=== PATIENT | female | born 1975 ===

== ENCOUNTER 2017-05-26 12:33 | Emergency (ER) | payer OTHER ==
[2017-05-26 12:42] VITALS: BP 131/74; PULSE 91; RESP 18; TEMP 98; O2SAT 98
--- NOTE | 2017-05-26 13:25 | ED PDOC ---
HPI: Female Pain Time Seen by Provider: 05/26/17 12:52 Chief Complaint (Nursing): Female Genitourinary History Per: Patient Onset/Duration Of Symptoms: Days (2) Current Symptoms Are (Timing): Still Present Severity: Mild Pain Scale Rating Of: 2 Quality Of Discomfort: Cramping Additional Complaint(s): Vaginal spotting assoc with lower abd cramping x 2 days. Home preg positive. Abnormal Vaginal Bleeding: Yes Past Medical History Vital Signs: Last Vital Signs Temp 98 F 05/26/17 12:37 Pulse 91 H 05/26/17 12:37 Resp 18 05/26/17 12:37 BP 131/74 05/26/17 12:37 Pulse Ox 98 05/26/17 12:37 - Medical History PMH: No Chronic Diseases - Family History Family History: States: Unknown Family Hx - Home Medications Home Medications: Ambulatory Orders Medication Instructions Recorded traMADol [Ultram] 50 mg PO Q8 #1 tab 08/12/14 Dicyclomine [Dicyclomine HCl] 10 mg PO BID PRN #6 cap 08/12/15 Ondansetron [Zofran] 4 mg PO Q8H PRN #6 tab 08/12/15 - Allergies Allergies/Adverse Reactions: Allergies Allergy/AdvReac Type Severity Reaction Status Date / Time No Known Allergies Allergy Verified 05/26/17 12:35 Review of Systems Gastrointestinal: Positive for: Abdominal Pain Genitourinary Female: Positive for: Vaginal Bleeding Musculoskeletal: Negative for: Back Pain Physical Exam - Physical Exam Appears: Positive for: Non-toxic, No Acute Distress Skin: Positive for: Normal Color, Warm, DRY Gastrointestinal/Abdominal: Positive for: Bowel Sounds, Soft. Negative for: Tenderness Pelvic Exam: Positive for: External Exam Normal, No Masses. Negative for: Blood , Discharge, Tender Adnexa, Tender Uterus Extremity: Positive for: Normal ROM Neurologic/Psych: Positive for: Alert, Oriented - Laboratory Results Result Diagrams: 05/26/17 13:53 05/26/17 13:53 - ECG O2 Sat by Pulse Oximetry: 98 Disposition - Clinical Impression Clinical Impression: Threatened miscarriage - Patient ED Disposition Is Patient to be Admitted: No Counseled Patient/Family Regarding: Studies Performed, Diagnosis, Need For Followup, Rx Given - Disposition [facility]errals: [facility] [Outside] Disposition: Routine/Home Disposition Time: 16:58 Condition: FAIR Instructions: Threatened Miscarriage (ED) Forms: [facility] (Romanian) Print Language: BERMUDIAN
[2017-05-26 14:01] LABS: BASO # 0.1 K/uL (0.0-0.2); BASO % 0.5 % (0.0-2.0); EOS # 0.2 K/uL (0.0-0.7); EOS % 2.4 % (0.0-4.0); HEMATOCRIT 38.6 % (34.0-47.0); LYMPH # 2.7 K/uL (1.0-4.3); LYMPH % 26.1 % (20.0-40.0); MEAN CELL VOLUME 85.5 fl (81.0-99.0); MEAN CORPUSCULAR HGB CONC 33.9 g/dL (33.0-37.0); MEAN PLATELET VOLUME 9.6 fl (7.2-11.7); MONO # 0.8 K/uL (0.0-0.8); MONO % 7.3 % (0.0-10.0); NEUT # 6.6 K/uL (1.8-7.0); NEUT % 63.7 % (50.0-75.0); RED CELL DISTRIBUTION WIDTH 14.3 % (11.5-14.5); WHITE BLOOD COUNT 10.4 K/uL (4.8-10.8)
[2017-05-26 14:53] LABS: ALB/GLOB RATIO 1.1 (1.0-2.1); ALKALINE PHOSPHATASE 80 U/L (38-126); ALT/SGPT 30 U/L (9-52); AST/SGOT 43 U/L (14-36); BILIRUBIN,TOTAL 0.4 mg/dl (0.2-1.3); BLOOD UREA NITROGEN 9 mg/dl (7-17); CALCIUM 9.1 mg/dL (8.4-10.2); CARBON DIOXIDE 23 mmol/L (22-30); CHLORIDE 104 mmol/L (98-107); GFR AFRICAN-AMERICAN > 60; GLUCOSE,RANDOM 88 mg/dL (65-105); POTASSIUM 4.6 MMOL/L (3.6-5.0); SODIUM 137 mmol/l (132-148); TOTAL PROTEIN 7.7 G/DL (6.3-8.2)
--- NOTE | 2017-05-27 11:12 | US ---
PROCEDURE: OB Pelvic Ultrasound HISTORY: r/o ectopic COMPARISON: None available. FINDINGS: UTERUS: Single Live intrauterine gestation. CRL measures 2.62 cm equivalent to 9 weeks and 3 days gestatioin Gestational sac diameter measures 4.44 cm equivalent to 10 weeks and 0 day gestation Heart rate: 173 bpm. age (Ultrasound estimated): Nine weeks and 5 days. Heather-gestational hemorrhage: None. Date of delivery (Ultrasound estimated) : 12/24/2017. Uterus measures 12.4 x 9.8 x 7.4 cm. Normal in size and appearance. CERVIX: Long and closed. No cervical abnormality seen. RIGHT OVARY: Measures 2.9 x 2.0 x 1.8 cm. No mass lesion. Normal flow. LEFT OVARY: Measures 2.9 x 3.6 x 1.7 cm. No solid mass. Normal flow. There is a 2.2 x 1.7 x 1.6 cm parametrial cyst FREE FLUID: None. OTHER FINDINGS: None. IMPRESSION: Single live intrauterine gestation with mean gestational age of 9 weeks and 5 days. The estimated date of delivery by ultrasound is 12/24/2017. The ultrasound dates lag B joint the clinical dates by approximately 4 weeks. Clinical correlation and follow-up is advised.
== END 2017-05-26 17:14 | disposition home or self-care (01) ==
LOC: H.ER 12:33
DX: O20.0 Threatened abortion (principal); Z3A.09 9 weeks gestation of pregnancy

== ENCOUNTER 2017-06-10 07:20 | Emergency (ER) | payer MEDICAID, OTHER ==
[2017-06-10 07:27] VITALS: BP 115/69; PULSE 87; RESP 18; TEMP 98.4; O2SAT 97
--- NOTE | 2017-06-10 07:51 | ED PDOC ---
HPI: Female Pain Time Seen by Provider: 06/10/17 07:23 Chief Complaint (Nursing): Abdominal Pain History Per: Patient Onset/Duration Of Symptoms: Days (4) Current Symptoms Are (Timing): Still Present Severity: Mild Pain Scale Rating Of: 2 Quality Of Discomfort: Cramping Additional Complaint(s): LLQ abd pain crampy x 4 days assoc with vaginal bleeding. Bleeding stopped but abd pain persists. seen here 05/26. Abnormal Vaginal Bleeding: Yes Past Medical History Vital Signs: Last Vital Signs Temp 98.4 F 06/10/17 07:26 Pulse 87 06/10/17 07:26 Resp 18 06/10/17 07:26 BP 115/69 06/10/17 07:26 Pulse Ox 97 06/10/17 07:26 - Medical History PMH: No Chronic Diseases - Family History Family History: States: Unknown Family Hx - Home Medications Home Medications: Ambulatory Orders Medication Instructions Recorded traMADol [Ultram] 50 mg PO Q8 #1 tab 08/12/14 Dicyclomine [Dicyclomine HCl] 10 mg PO BID PRN #6 cap 08/12/15 Ondansetron [Zofran] 4 mg PO Q8H PRN #6 tab 08/12/15 - Allergies Allergies/Adverse Reactions: Allergies Allergy/AdvReac Type Severity Reaction Status Date / Time No Known Allergies Allergy Verified 06/10/17 07:41 Review of Systems Gastrointestinal: Positive for: Abdominal Pain Genitourinary Female: Positive for: Vaginal Bleeding Musculoskeletal: Positive for: Back Pain Physical Exam - Physical Exam Appears: Positive for: Non-toxic, No Acute Distress Skin: Positive for: Normal Color, Warm, DRY Gastrointestinal/Abdominal: Positive for: Bowel Sounds, Soft. Negative for: Tenderness Pelvic Exam: Positive for: External Exam Normal, No Masses. Negative for: Active Bleeding, Tender Adnexa, Tender Uterus - Laboratory Results Result Diagrams: 06/10/17 07:58 06/10/17 07:58 - ECG O2 Sat by Pulse Oximetry: 97 Disposition - Clinical Impression Clinical Impression: Abdominal pain during - Patient ED Disposition Is Patient to be Admitted: No Counseled Patient/Family Regarding: Studies Performed, Diagnosis, Need For Followup, Rx Given - Disposition Referrals: [facility] [Outside] Disposition: Routine/Home Disposition Time: 12:03 Condition: FAIR Instructions: Threatened Miscarriage (ED), Abdominal Pain in (ED) Forms: [facility] (Bengali) Print Language: PERSIAN
[2017-06-10 08:05] LABS: BASO % 0.4 % (0.0-2.0); EOS # 0.2 K/uL (0.0-0.7); EOS % 2.1 % (0.0-4.0); HEMOGLOBIN 13.6 g/dL (12.0-16.0); LYMPH # 2.2 K/uL (1.0-4.3); LYMPH % 19.7 % (20.0-40.0); MEAN CELL VOLUME 86.5 fl (81.0-99.0); MEAN CORPUSCULAR HEMOGLOBIN 28.5 pg (27.0-31.0); MEAN CORPUSCULAR HGB CONC 32.9 g/dL (33.0-37.0); MEAN PLATELET VOLUME 9.4 fl (7.2-11.7); MONO # 0.6 K/uL (0.0-0.8); MONO % 5.8 % (0.0-10.0); NRBC % 0.1 % (0.0-0.0); RBC 4.78 Mil/uL (3.80-5.20); RED CELL DISTRIBUTION WIDTH 13.9 % (11.5-14.5)
[2017-06-10 08:47] LABS: ALB/GLOB RATIO 1.1 (1.0-2.1); ALT/SGPT 32 U/L (9-52); AST/SGOT 22 U/L (14-36); BLOOD UREA NITROGEN 9 mg/dl (7-17); CALCIUM 9.3 mg/dL (8.4-10.2); GFR AFRICAN-AMERICAN > 60; GFR NON-AFRICAN AMERICAN > 60
--- NOTE | 2017-06-10 11:51 | US ---
PROCEDURE: Limited ultrasound HISTORY: Abdominal pain COMPARISON: 05/26/2017. TECHNIQUE: Standard protocol for this study/examination. FINDINGS: Variable presentation. Posterior Placenta. No evidence of abruption or previa Gestational age derived from LMP Cannot be ascertained based in the absence of a reliable/ known LMP Gestational age derived from the following biometric parameters 12 weeks 4 days . GINO 12/19/2017 Biparietal diameter 2.02 cm Head circumference5.7 cm Abdominal circumference 5.7 cm Femur length 0.74 cm Estimated weight 57.8 g Calculated cardiac rate 160 beats per min. Closed cervix measuring 5.54 cm IMPRESSION: 12 weeks 4 days live intrauterine gestation. Adequate interval progression compared to the prior study.
== END 2017-06-10 12:28 | disposition home or self-care (01) ==
LOC: H.ER 07:20
DX: Z36.9 Encounter for antenatal screening, unspecified (principal)

== ENCOUNTER 2017-06-20 10:20 | Emergency (ER) | payer SELFPAY ==
[2017-06-20 10:29] VITALS: BP 98/61; PULSE 76; RESP 16; TEMP 97.9; O2SAT 98; BMI 29.7
--- NOTE | 2017-06-20 10:49 | ED PDOC ---
HPI: General Adult Time Seen by Provider: 06/20/17 10:47 Chief Complaint (Nursing): Psychiatric Evaluation Chief Complaint (Provider): suicidal ideation History Per: Patient (42 y/o female [id number] sent by [facility] for evaluation of ongoing depression/suicidal ideation. Patient states she has been having feelings of depression since March 2017 but feels better now since she discovered she was . Denies any plan. Takes vitamins. No prior h/o depression. Was seen in ED in 05/2017 for depression and abdominal in .) Past Medical History Reviewed: Historical Data, Nursing Documentation, Vital Signs Vital Signs: Last Vital Signs Temp 97.9 F 06/20/17 10:22 Pulse 76 06/20/17 10:22 Resp 16 06/20/17 10:22 BP 98/61 L 06/20/17 10:22 Pulse Ox 98 06/20/17 10:49 - Family History Family History: States: Unknown Family Hx - Home Medications Home Medications: Ambulatory Orders Medication Instructions Recorded traMADol [Ultram] 50 mg PO Q8 #1 tab 08/12/14 Dicyclomine [Dicyclomine HCl] 10 mg PO BID PRN #6 cap 08/12/15 Ondansetron [Zofran] 4 mg PO Q8H PRN #6 tab 08/12/15 - Allergies Allergies/Adverse Reactions: Allergies Allergy/AdvReac Type Severity Reaction Status Date / Time No Known Allergies Allergy Verified 06/10/17 07:41 Review of Systems ROS Statement: Except As Marked, All Systems Reviewed And Found Negative Physical Exam - Reviewed Nursing Documentation Reviewed: Yes Vital Signs Reviewed: Yes - Physical Exam Appears: Positive for: Well, Non-toxic, No Acute Distress Head Exam: Positive for: ATRAUMATIC, NORMAL INSPECTION, NORMOCEPHALIC Skin: Positive for: Normal Color, Warm, DRY Eye Exam: Positive for: EOMI, Normal appearance, PERRL ENT: Positive for: Normal ENT Inspection Neck: Positive for: Normal, Painless ROM Cardiovascular/Chest: Positive for: Regular Rate, Rhythm Respiratory: Positive for: CNT, Normal Breath Sounds Gastrointestinal/Abdominal: Positive for: Normal Exam, Bowel Sounds, Soft Back: Positive for: Normal Inspection Extremity: Positive for: Normal ROM Neurologic/Psych: Positive for: Alert, Oriented - ECG O2 Sat by Pulse Oximetry: 98 - Progress ED Course And Treament: SEEN BY CRISIS DISCUSSED WITH DR. AGUILAR DIAGNOSIS ANXIETY WILL F/U OUTPATIENT GIVEN [facility] INFORMATION. Disposition - Clinical Impression Clinical Impression: Anxiety - Patient ED Disposition Is Patient to be Admitted: No - Disposition Disposition: Routine/Home Disposition Time: 12:41 Condition: FAIR Instructions: Anxiety (ED) Forms: [facility] (Tajik) Print Language: GUATEMALAN
== END 2017-06-20 12:45 | disposition home or self-care (01) ==
LOC: SUPCPDRO 10:20 → H.ER 10:20
DX: R45.851 Suicidal ideations (principal); F32.9 Major depressive disorder, single episode, unspecified; F41.9 Anxiety disorder, unspecified

== ENCOUNTER 2017-08-23 04:21 | Emergency (ER) | payer SELFPAY ==
[2017-08-23 04:40] VITALS: BMI 31.5
[2017-08-23 04:43] VITALS: BP 108/70; PULSE 96; RESP 18; TEMP 98; O2SAT 97
--- NOTE | 2017-08-23 05:34 | ED PDOC ---
HPI: General Adult Time Seen by Provider: 08/23/17 04:53 Chief Complaint (Nursing): Fever History Per: Patient Additional Complaint(s): Pt. states for the past 2 days she's had thick yellow nasal congestion associated with b/l facial pain L > R. Reports facial pain is worsened with flexion of neck. Reports feeling feverish but did not check her temperature nor did she take any antipyretics. Pt. states she did not take any meds as she is uncertain what meds are safe to take during . Pt. is currently 22 weeks . Denies cough, trauma, abdominal pain, vaginal bleeding, decrease activity. Also reports L sided facial pain radiates to the L ear but does not have hearing changes Past Medical History Reviewed: Historical Data, Nursing Documentation, Vital Signs Vital Signs: Last Vital Signs Temp 98.0 F 08/23/17 04:40 Pulse 96 H 08/23/17 04:40 Resp 18 08/23/17 04:40 BP 108/70 08/23/17 04:40 Pulse Ox 97 08/23/17 05:36 - Medical History PMH: Denies: Diabetes, Hepatitis, HIV, HTN, Seizures, Sexually Transmitted Disease - Family History Family History: States: Unknown Family Hx - Home Medications Home Medications: Ambulatory Orders Medication Instructions Recorded traMADol [Ultram] 50 mg PO Q8 #1 tab 08/12/14 Dicyclomine [Dicyclomine HCl] 10 mg PO BID PRN #6 cap 08/12/15 Ondansetron [Zofran] 4 mg PO Q8H PRN #6 tab 08/12/15 Azithromycin [Zithromax] 250 mg PO DAILY #6 tab 08/23/17 Sodium Chloride [[facility] 2 - 4 spray NS Q3 PRN #1 bottle 08/23/17 Pharmacy Saline Nasal [place] 44 ] - Allergies Allergies/Adverse Reactions: Allergies Allergy/AdvReac Type Severity Reaction Status Date / Time No Known Allergies Allergy Verified 08/23/17 04:39 Review of Systems ROS Statement: Except As Marked, All Systems Reviewed And Found Negative ENT: Positive for: Ear Pain, Nose Congestion Physical Exam - Physical Exam Appears: Positive for: Well, Non-toxic, No Acute Distress Head Exam: Positive for: ATRAUMATIC, NORMAL INSPECTION, NORMOCEPHALIC Skin: Positive for: Normal Color, Warm. Negative for: Rash Eye Exam: Positive for: Normal appearance, EOMI, PERRL. Negative for: Periorbital swelling, Periorbital tenderness, Conjunctival injection (b/l) ENT: Positive for: TM Is/Are (non-erythematous, non-bulging bl), Sinus Pain/ Drainage (b/l malar tenderness without swelling), Nasal Congestion, Other ( dentition intact; no gingival swelling). Negative for: Pharyngeal Erythema, Tonsillar Exudate, Tonsillar Swelling Neck: Positive for: Normal, Painless ROM Cardiovascular/Chest: Positive for: Regular Rate, Rhythm Respiratory: Positive for: CNT, Normal Breath Sounds Gastrointestinal/Abdominal: Positive for: Normal Exam, Soft, Other (gravid abdomen). Negative for: Tenderness Neurologic/Psych: Positive for: Alert, Oriented - ECG O2 Sat by Pulse Oximetry: 97 Disposition - Clinical Impression Clinical Impression: Acute sinusitis - Patient ED Disposition Is Patient to be Admitted: No - Disposition Disposition: Routine/Home Disposition Time: 05:28 Condition: STABLE Prescriptions: Azithromycin [Zithromax] 250 mg PO DAILY #6 tab Sodium Chloride [[facility] Saline Nasal [place] [facility] ] 2 - 4 spray NS Q3 PRN #1 bottle PRN Reason: congestion Instructions: Sinusitis, Adult (DC) Forms: [employer] (Yakut) Print Language: TAMAZIGHT
== END 2017-08-23 06:18 | disposition home or self-care (01) ==
LOC: H.ER 04:21
DX: J01.90 Acute sinusitis, unspecified (principal); O26.892 Other specified pregnancy related conditions, second trimester; Z3A.22 22 weeks gestation of pregnancy

== ENCOUNTER 2017-12-09 05:18 | Inpatient (IN) | payer MEDICAID, SELFPAY ==
[2017-12-09 06:13] VITALS: BMI 32.9
[2017-12-09] MEDS: Lactated Ringer's 1,000 ML IV ONE ×2 (06:13→06:45)
[2017-12-09] MEDS ORDERED: Oxytocin 30 units/LR 500ML 30 U/500 ML BAG IV ONE (06:21)
[2017-12-09 06:27] VITALS: PULSE 75
[2017-12-09 06:43] LABS: BASO % 0.4 % (0.0-2.0); EOS # 0.2 K/uL (0.0-0.7); EOS % 2.4 % (0.0-4.0); HEMOGLOBIN 13.4 g/dL (12.0-16.0); LYMPH # 2.1 K/uL (1.0-4.3); LYMPH % 24.2 % (20.0-40.0); MEAN CORPUSCULAR HEMOGLOBIN 30.3 pg (27.0-31.0); MEAN CORPUSCULAR HGB CONC 34.5 g/dL (33.0-37.0); MEAN PLATELET VOLUME 10.3 fl (7.2-11.7); MONO # 0.5 K/uL (0.0-0.8); MONO % 5.7 % (0.0-10.0); NEUT # 5.9 K/uL (1.8-7.0); NEUT % 67.3 % (50.0-75.0); NRBC % 0.1 % (0.0-0.0); RBC 4.41 Mil/uL (3.80-5.20); RED CELL DISTRIBUTION WIDTH 14.1 % (11.5-14.5); WHITE BLOOD COUNT 8.8 K/uL (4.8-10.8)
[2017-12-09] MEDS ORDERED: Morphine 1 mg/ml preservative-free Inj(Duramorph) ONE (08:18)
[2017-12-09] MEDS ORDERED: ePHEDrine 50 mg/ml Inj ONE (08:32)
[2017-12-09] MEDS ORDERED: Phenylephrine 10 mg/ml Inj ONE (08:35)
[2017-12-09] MEDS ORDERED: Morphine 1 mg/ml preservative-free Inj(Duramorph) IT ONE (09:15)
[2017-12-09] MEDS ORDERED: DiphenhydrAMINE 50 mg/ml Inj IVP PRN ×2 (09:15→12:17)
[2017-12-09] MEDS ORDERED: Oxycodone/Acetaminophen 5/325 mg Tab PO PRN ×3 (09:28→12:17)
[2017-12-09] MEDS ORDERED: Lactated Ringer's 1,000 ML IV SCH (09:30)
[2017-12-09] MEDS ORDERED: Simethicone 80 mg Chewtab PO SCH (10:00)
--- NOTE | 2017-12-09 10:20 | OBADHP ---
Datetime: 12/09/2017 06:42 Admit Comment, IP Provider: [facility]: [id number] 42 y/o is presenting for scheduled with BTL. LMP: 02/21/2017 First u/s: 7 with GINO: 12/20/2017 Last ultrasound: 12/03/2017 - ALBERT 14.4 PNP: Dr. Haddad, last seen 12/04/2016. Last u/s was 12/02/2016 Patient denied any vaginal bleeding or loss of fluid. She started feeling contractions yesterday a nd has been feeling contractions every 3 minutes. Patient states she has gestational diabetes control led with diet alone. She also was found to have a (+) PPD, but CXR was (-). PMH: ovarian cyst, umbilical hernia Family Hx: Mother- Diabetes Father- none Social Hx: NO tobacco use, no EtOH, no drug use Allergies: penicillin- rash almonds- ROS: denied any dizziness, headache, blurry vision, CP, SOP, N/V/D/C A/P- 42 y/o is presenting for scheduled with BTL. 1. Admit to the unit. 2. Routine labs for pre-op ordered. 3. FHR monitoring. 4. BTL consent in the chart Nan Bishop, PGY-1 Abdomen - PN: Normal Back - PN: Normal Lungs - PN: Normal Heart - PN: Normal General - PN: Normal Comments, ACOG Physical Exam: No CVA tenderness Vital Signs Provider: Reviewed IP Chief Complaint: Scheduled Section EGA AdmitDate IP: 38.3 IP Adm Impression: Term, intrauterine IP Admit Plan: Admit to unit
--- NOTE | 2017-12-09 10:24 | OBDS ---
DELIVERY PERSONNEL Delivery Doctor: Jigna Marr MD Scrub Nurse: Veena Smith OBT Dairy Helper: Brenna Reeves RN Anesthesiologist: Dr. Hanson MATERNAL INFORMATION Delivery Anesthesia: Spinal Medications in Delivery: Pitocin 30 units Placenta Cultured: No Maternal Complications: None Provider Comments: See Operative report LABOR SUMMARY EDC: 12/20/2017 00:00 No. Babies in Womb: 1 Attempted: No Labor Anesthesia: None LABOR INFORMATION Reason for Induction: Not Applicable Oxytocin: N/A Group B Beta Strep: Negative Steroids Given: None Reason Steroids Not Administered: Not Applicable MEMBRANES Membranes Rupture Method: Artificial Amniotic Fluid Color: Clear Amniotic Fluid Amount: Small Amniotic Fluid Odor: Normal STAGES OF LABOR Stage 3 hrs: 0 Stage 3 min: 1 CSECTION DELIVERY Primary Indication: Repeat Elective Secondary Indication: Repeat Elective CSection Urgency: Elective CSection Incidence: Repeat Labor: No Labor Elective: Elective CSection Incision: Lower Uterine Transverse BABY A INFORMATION Delivery Date/Time: 12/09/2017 08:48 Method of Delivery: Born in Route : No : N/A Forceps: N/A Vacuum Extraction: N/A Shoulder Dystocia : No SHOULDER DYSTOCIA BABY A Infant Delivery Date/Time: 12/09/2017 08:48 PRESENTATION/POSITION BABY A Presentation: Breech Cephalic Presentation: N/A Breech Presentation: Alexys PLACENTA INFORMATION BABY A Placenta Delivery Time : 12/09/2017 08:49 Placenta Method of Delivery: Spontaneous Placenta Status: Delivered SCORES BABY A Heart Rate 1 min: >100 bpm Resp Effort 1 min: Good Cry Reflex Irritability 1 min: Cough or Sneeze or Pulls Away Muscle Tone 1 min: Active Motion Color 1 min: Body [place], Extremities Blue Resuscitation Effort 1 min: Tactile Stimulation SCORE 1 MIN: 9 Heart Rate 5 min: >100 bpm Resp Effort 5 min: Good Cry Reflex Irritability 5 min: Cough or Sneeze or Pulls Away Muscle Tone 5 min: Active Motion Color 5 min: Body [place], Extremities Blue Resuscitation Effort 5 min: Tactile Stimulation SCORE 5 MIN: 9 INFANT INFORMATION BABY A Gestational Age at Delivery: 38.0 Gestational Status: Term Outcome : Liveborn Condition : Stable Infant Sex: Female IDENTIFICATION/MEDS BABY A ID Band Number: [id number] ID Band Location: Left Leg; Left Arm WEIGHT/LENGTH BABY A Infant Birthweight (gms): 3595 Infant Weight (lb): 7 Weight (oz): 15 CORD INFORMATION BABY A No. Cord Vessels: 3 Nuchal Cord : Around Neck x1, Loose Cord Blood Taken: N/A Suction: None ASSESSMENT BABY A Infant Complications: None Physical Findings at Delivery: Within Normal Limits Infant Respirations: Appears Normal Locomotive Firer/ALS Called : No Care By: Wendy Whitley Transferred To: Remains with Mother
[2017-12-09] MEDS: Lactated Ringer's 1,000 ML IV SCH (17:37)
[2017-12-09] MEDS: Simethicone 80 mg Chewtab PO SCH ×2 (18:53→22:28)
--- NOTE | 2017-12-09 22:05 | OP ---
PROCEDURE DATE: 12/09/2017 PREOPERATIVE DIAGNOSIS: Term with previous section, multiparity, advanced maternal age and gestational diabetes. POSTOPERATIVE DIAGNOSIS: Term with previous section, multiparity, advanced maternal age and gestational diabetes with malpresentation, breech, delivered. PROCEDURE: Repeat low transverse section and bilateral tubal ligation. SURGEON: Warner Marr MD MANUFACTURING ENGINEERING PROFESSOR: Chinedu Astorga DO ESTIMATED BLOOD LOSS: 800 mL. URINE OUTPUT: 200 mL clear at the end of procedure. INTRAVENOUS FLUIDS: 2300 mL lactated Ringer's. PATHOLOGY: Segment of right and left fallopian tubes. ANESTHESIA: Spinal. ANESTHESIOLOGIST: Marcos Hanson MD CLOSURE: [place]. DESCRIPTION OF PROCEDURE: The patient was taken to the operating room and given spinal anesthesia without difficulty. She was then prepped and draped in normal sterile fashion in the dorsal supine position with a leftward tilt. A Pfannenstiel skin incision was then made with a scalpel through the previous scar and carried to the underlying fascia with the Bovie. The fascia was then incised in the midline, and the incision was extended laterally using the Bovie. The inferior aspect of the fascial incision was then grasped with Erin clamps, elevated, and the underlying rectus muscles were dissected off sharply with the Bovie, then bluntly. Attention was then turned to the superior aspect of the fascial incision, which in a similar fashion was dissected off with the Bovie, then bluntly. The rectus muscles were meticulously in the midline using a scalpel, and the peritoneum was then entered and extended laterally, superiorly and inferiorly paying close attention to the bladder. The bladder blade was inserted. The vesicouterine peritoneum was identified, tented up and entered with Metzenbaum scissors. This incision was then extended laterally, and a bladder flap was created digitally. The bladder blade was reinserted, and the lower uterine segment was incised in a transverse fashion with the scalpel. This incision was then extended cephalocaudally bluntly. The was then delivered in breech presentation atraumatically. The nose and mouth were suctioned on the abdomen. The cord was doubly clamped and cut. The was handed off to awaiting fur trapper. Cord blood was taken. The placenta was extracted manually and intact. The uterus was exteriorized and cleared of all clots and debris. The uterine incision was then closed with 1 Vicryl in a running lock fashion, and a second layer was then placed for imbrication. Good hemostasis was noted. At this time, attention was then turned to the fallopian tubes through which bilateral tubal ligation was performed with a 2-0 chromic suture performing a modified Collins procedure. Bovie was used to ensure good hemostasis up to the cut portion of the tubes, and a segment of the right and left fallopian tube was handed off of the field for pathology. Copious irrigation was performed. The uterus was returned to the abdomen. The gutters were cleared off all clots. Inspection of the uterine incision and bilateral areas of tubal ligation revealed good hemostasis. The peritoneum and muscle layer were then closed with 2-0 Vicryl in a running fashion. The fascia was then closed with 0 Vicryl in a running fashion bilaterally to the midline, and the subcutaneous fat layer was then closed with 4 interrupted stitches using a 3-0 plain suture, and the Bovie was used to obtain good hemostasis at this layer. The skin was closed with urvashi, and the incision was covered with sterile dressing. The patient tolerated the procedure well. Sponge, lap and needle counts were all correct x4. Clindamycin 900 mg was given preoperatively. The patient was taken to the recovery room in stable condition. There was no injury to the bladder, bowel, ureter, or baby. Due to the nature of this case, an manufacturing assistant was requested. My manufacturing assistant, Dr. Astorga, was present for the entire procedure from the initial incision to the patient's transfer to the recovery room. He assisted with entry into the abdominal cavity, delivery of the baby. He provided great exposure to decrease blood loss and ensure good hemostasis. He assisted with closure of the abdominal wall. His assistance was vital to this procedure. Warner Marr MD
[2017-12-10] MEDS: Lactated Ringer's 1,000 ML IV SCH (02:21)
[2017-12-10] MEDS: Simethicone 80 mg Chewtab PO SCH ×4 (06:01→21:24)
[2017-12-10 06:37] LABS: HEMOGLOBIN 11.8 g/dL (12.0-16.0); MEAN CORPUSCULAR HGB CONC 33.4 g/dL (33.0-37.0); RBC 3.94 Mil/uL (3.80-5.20); RED CELL DISTRIBUTION WIDTH 13.9 % (11.5-14.5); WHITE BLOOD COUNT 11.6 K/uL (4.8-10.8)
[2017-12-10] MEDS: Multivitamin With Minerals Tab PO SCH (08:38)
[2017-12-10] MEDS: Oxycodone/Acetaminophen 5/325 mg Tab PO PRN ×2 (08:39→19:47)
--- NOTE | 2017-12-10 08:39 | OBPPN ---
Datetime: 12/10/2017 06:05 PP Pain Prov: Within normal limits PP Nausea Prov: Denies PP Flatus Prov: Yes PP BM Prov: No PP Heart Prov: Normal PP Lungs Prov: Normal PP Abdomen/Uterus Prov: Normal PP Lochia Prov: Normal PP Extremities Prov: Normal PP Impression Prov: Normal progression PP Plan Prov: Continue present management PP Progress Note Prov: [facility] - [id number] 42 y/o POD 0, s/p . Patient was seen and examined this AM. There were no signific ant events overnight. Engel removed this AM. Dressing dry, clean, and intact. Incision site healing w ell. Lochia is like menses. Patient is regular diet for AM meal. Patient denied currently has no comp laints, no fever, chills, chest pain, dyspnea, nausea, vomiting or diarrhea. PE: General: Well-appearing female Cardio: s1 s2 auscultated, no murmurs Resp: B/L breath sounds Abd: bowel sounds auscultated Ext: non-tender A/P 1. encouraged. 2. Ambulation as tolerated encouraged. 3. Tubal ligation performed as means of contraception. 4. Anticipated d/c home- 12/12/2017. Case discussed with OB Attending. Nan Bishop PGY-1 Patient seen with resident I agree with the note
[2017-12-10] MEDS ORDERED: Multivitamin With Minerals Tab PO SCH (09:00)
[2017-12-11] MEDS: Oxycodone/Acetaminophen 5/325 mg Tab PO PRN ×2 (05:21→21:36)
[2017-12-11] MEDS: Simethicone 80 mg Chewtab PO SCH ×4 (05:23→21:36)
[2017-12-11] MEDS: Multivitamin With Minerals Tab PO SCH (08:42)
--- NOTE | 2017-12-11 09:48 | OBPPN ---
Datetime: 12/11/2017 05:42 PP Pain Prov: Within normal limits PP Pain Prov comment: well PP Nausea Prov: Denies PP Flatus Prov: Yes PP BM Prov: No PP Nausea Prov comment: ambulating w/o difficulty PP Breasts Prov: Normal PP Heart Prov: Normal PP Lungs Prov: Normal PP Abdomen/Uterus Prov: Normal PP Lochia Prov: Normal PP Vulva/Perineum Prov: Not Done PP CVA Tenderness Prov: Normal PP Extremities Prov: Normal PP C/S Incision Prov: Normal PP Progress Prov: Normal PP Impression Prov: Normal progression PP Plan Prov: Continue present management PP Progress Note Prov: 42 y/o POD 2, s/p . Patient was seen and examined this AM. T here were no significant events overnight. Patient is tolerating pain with medication. She is on regu lar diet and ambulating without complaints. She continues to breast feed with formula supplementation . Incision site is clean, and healing well. Patient + flatus, - for BM. Lochia is like menses. Uterus if firm and at the level of the umbilicus. Patient denied any fever, chills, chest pain, dyspnea. PE: General: Well-appearing female Cardio: s1 s2 auscultated, no murmurs Resp: B/L breath sounds Abd: bowel sounds auscultated, nontender Ext: non-tender Neuro: A _ O x 3 A/P 1. Continued and ambulation as tolerated is encouraged. 2. Ibuprofen 600 mg PO PRN for mild/moderate pain, and Percocet 5-325mg 1 tab PO PRN for severe pa in. 3. Anticipated d/c home- 12/12/2017. Case discussed with OB Attending. Nan Bishop PGY-1 Attending addendum: I saw and examined the patient at bedside this morning myself. I reviewed the resident note above and agree with findings and management. Anticipate DC home tomorrow. Patient will call center today for appt for wound check and pp check w/ Dr. Haddad in 2wks and 6 w ks respectively. IP PP Procedures: None Vital Signs Provider PP: Reviewed; Within Normal Limits
[2017-12-12] MEDS: Simethicone 80 mg Chewtab PO SCH ×2 (04:50→09:12)
[2017-12-12] MEDS: Oxycodone/Acetaminophen 5/325 mg Tab PO PRN (07:46)
[2017-12-12] MEDS: Multivitamin With Minerals Tab PO SCH (09:11)
--- NOTE | 2017-12-12 10:51 | OBDCSUM ---
Datetime: 12/12/2017 06:28 Discharged to, Provider: Home Follow up at, Provider: Dr. Haddad Disch Instr Activity: Normal activity Disch Instr Diet: Regular Discharge Instructions, Provider: Routine instructions given Discharge Diagnosis, Provider: Term Delivered Follow up in weeks, Provider: 1-2 wks Disch Referrals: None Contraception discussed, Prov: Yes Disch Activity Restrictions: No lifting; Minimize stair-climbing; No sexual activity; Nothing in vag maria guadalupe - [place], tampons, douche Discharge Comment, Provider: 1. encouraged. 2. Ibuprofen as needed for moderate pain, and Percocet as needed for severe pain. (Please avoid dr redd or operating machinery while on Percocet because it may cause drowsiness). 3. Continue walking as much as tolerated. 4. Please plan follow up visit in 3-7 days with hot box checker. 5. Please plan visit in 6 weeks with your OB. 6. No heavy lifting or anything in the vagina for 6 weeks. 7. Please avoid stairs if possible. 8. If you develop severe or worsening pain, please go to the ED. 9.Please see your Primary Care Provider in 6 months for possible latent TB treatment, but not bef ore then because the medication can cause harm to the baby.
--- NOTE | 2017-12-12 10:51 | OBPPN ---
Datetime: 12/12/2017 06:26 PP Pain Prov: Within normal limits PP Nausea Prov: Denies PP Flatus Prov: Yes PP BM Prov: Yes PP Breasts Prov: Normal PP Heart Prov: Normal PP Lungs Prov: Normal PP Abdomen/Uterus Prov: Normal PP Lochia Prov: Normal PP CVA Tenderness Prov: Normal PP Extremities Prov: Normal PP C/S Incision Prov: Normal PP Progress Prov: Normal PP Impression Prov: Normal progression PP Plan Prov: Discharge PP Progress Note Prov: 42 y/o POD 2, s/p . Patient was seen and examined this AM. T here were no significant events overnight. Patient is tolerating pain with medication. She is on regu lar diet and ambulating without complaints, and continues to breast feed with formula supplementation . Lochia is like menses. Incision site is clean, and healing well. Patient + flatus _ BM. Lochia is l malissa menses. Uterus if firm and at the level of the umbilicus. Patient denied any fever, chills, chest pain or dyspnea. PE: General: Well-appearing female Cardio: s1 s2 auscultated, no murmurs Resp: B/L breath sounds Abd: bowel sounds auscultated Back: No CVA tenderness Ext: non-tender Neuro: A _ O x 3 1. Continued and ambulation as tolerated is encouraged. 2. Ibuprofen 600 mg PO PRN for mild/moderate pain, and Percocet 5-325mg PO PRN for severe pain. 3. Patient informed to see PCP in 6 months for possible latent TB treatment, but not before then d ue to harm of fetus from INH. She seemed confused about having to follow up for management. Patient s tates she thought everything was fine, but states she will stee see PCP. 4. D/c home- today (12/12/2017). 5.Case discussed with OB Attending. Nan Bishop PGY-1 Attending addendum: I saw and examined the patient at bedside myself this morning. I reviewed the resident note above and agree with findings and management. Plan: -DC home today, wound care instructions given -s/p BTL - support given -f/u w/ Dr. Haddad in 1-2 wks for wound check and 4-6wks for routine pp visit. Will need 2hr GTT p ostpartum. -Rx for ibuprofen and percocet in chart. Vital Signs Provider PP: Reviewed; Within Normal Limits
[2017-12-12 18:44] VITALS: BP 118/66; RESP 20; TEMP 98.7; O2SAT 98
== END 2017-12-12 13:05 | disposition home or self-care (01) | DRG 371 ==
LOC: H.L&D 05:18 → H.OB/GYN 12:03
PROVIDERS: ADMIT Obstetrics & Gynecology; ATTEND Obstetrics & Gynecology
PROC: 10D00Z1 Extraction of Products of Conception, Low, Open Approach (ICD-10-PCS; principal; 2017-12-09)
PROC: 0UL70ZZ Occlusion of Bilateral Fallopian Tubes, Open Approach (ICD-10-PCS; 2017-12-09)
PROC: 4A1HXCZ Monitoring of Products of Conception, Cardiac Rate, External Approach (ICD-10-PCS; 2017-12-09)
DX: O34.211 Maternal care for low transverse scar from previous cesarean delivery (principal); N85.8 Other specified noninflammatory disorders of uterus; Z3A.38 38 weeks gestation of pregnancy; Z37.0 Single live birth; O24.420 Gestational diabetes mellitus in childbirth, diet controlled; Z30.2 Encounter for sterilization; O34.83 Maternal care for other abnormalities of pelvic organs, third trimester; O69.81X0 Labor and delivery complicated by cord around neck, without compression, not applicable or unspecified